=== PATIENT | male | born 1960 | race Caucasian/White ===

== ENCOUNTER 2020-11-02 21:47 | Emergency (ER) | payer MEDICARE ==
[~2020-11-02] VITALS: Ht 193 cm; Wt 115.2 kg
[~2020-11-02 21:47] MED LIST: ASPIR-LOW81 MG PO; ASPIRIN EC325 MG; ATENOLOL25 MG; BUDEPRION XL300 MG; BUPROPION XL450 MG PO; CARBIDOPA-LEVO1 EAC1 PO; COMPLETE M9 MG/15 ML; DOCUSATE SODIU100 MG; FEOSOL325 MG PO; FLEXERIL10 MG; GABAPENTIN800 MG PO; HYDROCODON-ACE1 EAC8 PO; HYDROMORPHONE HC2 MG; IBU600 MG PO; LANTUS100 UNITS/; LANTUS100 UNITS/ SUB-Q; MULTIVITAMINS1 EAC6 PO; OMEPRAZOLE20 M1; POLYETHYLENE2500 GM; ROPINIROLE HC0.25 MG; ROPINIROLE HCL2 MG PO; SENEXON8.6 MG; SYNTHROID25 MCG PO; TRAZODONE HCL100 MG; TRAZODONE HCL150 MG PO; TYLENOL325 MG; ULTRAM50 MG PO; VIAGRA100 MG PO; ZOCOR40 MG PO; ZOCOR80 MG; ZOLOFT100 MG; ZOLOFT100 MG PO
[2020-11-02] MEDS ORDERED: CYMBALTA20 MG PO (22:03)
== END 2020-11-03 01:38 | disposition home or self-care (01) ==
LOC: ED 21:47
DX: S63.502A Unspecified sprain of left wrist, initial encounter (principal); X58.XXXA Exposure to other specified factors, initial encounter; I10 Essential (primary) hypertension; E11.9 Type 2 diabetes mellitus without complications; Z87.891 Personal history of nicotine dependence; Z88.8 Allergy status to other drugs, medicaments and biological substances; Z91.012 Allergy to eggs; Z79.899 Other long term (current) drug therapy; Z79.82 Long term (current) use of aspirin; Z79.4 Long term (current) use of insulin
CPT/HCPCS: 73110; 73660; 99283-25

== ENCOUNTER 2021-03-15 15:44 | Emergency (ER) | payer MEDICARE ==
[~2021-03-15] VITALS: Ht 193 cm; Wt 115.2 kg
[~2021-03-15 15:44] MED LIST changes: +CYMBALTA20 MG PO
--- NOTE | 2021-03-16 18:53 | EKG ---
[facility] [address] [facility] [place], [place] [address] Signed Normal sinus rhythm Inferior infarct , age undetermined Abnormal ECG When compared with ECG of 23-JUN-2019 10:17, Inferior infarct is now present Confirmed by RENE PERALTA DO ([id number]) on 03/16/2021 6:53:33 PM Electronically Signed By: RENE PERALTA DO 03/16/211852 PATIENT NAME: BERMUDEZMARISABEL Electrocardiogram DATE OF : 60 PHYSICIAN: RENE PERALTA DO REPORT #: [id number] REPORT IS CONFIDENTIAL AND NOT TO BE RELEASED WITHOUT AUTHORIZATION
== END 2021-03-15 19:27 | disposition home or self-care (01) ==
LOC: ED 15:44
DX: U07.1 COVID-19 (principal); Z23 Encounter for immunization; I10 Essential (primary) hypertension; E11.9 Type 2 diabetes mellitus without complications; Z87.891 Personal history of nicotine dependence; Z88.8 Allergy status to other drugs, medicaments and biological substances; Z91.012 Allergy to eggs; Z79.899 Other long term (current) drug therapy; Z79.82 Long term (current) use of aspirin; Z79.891 Long term (current) use of opiate analgesic; Z79.4 Long term (current) use of insulin
CPT/HCPCS: 71045; 93005; 93010; 99284-25; C9803; M0243; Q0244; U0003

== ENCOUNTER 2021-12-06 05:50 | Day surgery (SDC) | payer OTHER ==
[~2021-12-06] VITALS: Ht 193 cm; Wt 110.9 kg
[~2021-12-06 05:50] MED LIST changes: +BELBUCA300 MCG; +OMEGA 3 1,0001 EACH PO
[2021-12-06] MEDS ORDERED: METFORMIN HCL1000 MG PO (06:31)
--- NOTE | 2021-12-06 06:38 | NUR ---
FELL LAST WEEK TRIPPED OVER RUG. BRUISING ON FOREARMS. STATES CANT FEEL FEET.
--- NOTE | 2021-12-06 07:43 | NUR ---
12/06/21 0743 Sara Cain 0709 PATIENT ARRIVES TO PACU UNRESPONSIVE TO VERBAL STIMULI. RESP EVEN AND UNLABORED, NC AT [address] IN PLACE.
--- NOTE | 2021-12-06 13:33 | OR ---
[facility] [address] [place], [place] [address] Signed DATE OF OPERATION: 12/06/2021 SURGEON: Beck Coburn MD PREOPERATIVE DIAGNOSES: 1. Screening. 2. Hemorrhoids. 3. Pruritus ani. 4. Diverticulosis. POSTOPERATIVE DIAGNOSES: 1. Minimal sigmoid diverticulosis. 2. Multiple small internal anal skin tags. PROCEDURE: Colonoscopy without biopsy. ESTIMATED BLOOD LOSS: None. INDICATIONS: Pedro is a 61-year-old gentleman, I have known for many years. He has been asked to see me for a followup colonoscopy. He underwent a negative colonoscopy in [address] Danilo Shaikh. He said he was awake throughout the test and it was quite miserable and painful. They explained to AJ he would need a monitored anesthesia care in the future. That is expected given his multiple disabilities along with his chronic pain and need for daily narcotics. He told me he had been raised in an orphanage in [place] and therefore has very little knowledge of his family. He cannot recall anyone with colon cancer or polyps. He talked about incision and drainage of a thrombosed hemorrhoid back in his 20s. He said he has cut back his eating. He has been losing weight. He also describes pruritus ani. I gave him brochures not only on colonoscopy, but also hemorrhoids and our handout on pruritus ani. We had gone over that together. He really needs to use a daily fiber product. We also recommended Balneol lotion to protect his perianal skin. In the office, his reminded me that I helped her with a colonoscopy in the recent past. They understand the nature of the test. There is risk including, but not limited to gas bloating, crampy abdominal pain, bleeding, perforation requiring surgery, and missed diagnosis. We also reviewed the written instructions for our bowel prep line by line. We asked him to do a double bowel prep. Even then he did not start going to the bathroom until around 11:30 at night. Today, he was mostly cleaned out except for some particulate liquid stool matter in the rectum and a little bit in his Electronically Signed By: BECK COBURN MD 12/06/21 1333 PATIENT NAME: PEDRO BERMUDEZ OPERATIVE REPORT DATE OF : 60 REPORT #: [id number] PHYSICIAN: BECK COBURN MD PCP: LUIS ARMANDO FONTANEZ REPORT IS CONFIDENTIAL AND NOT TO BE RELEASED WITHOUT AUTHORIZATION [facility] [address] [place] [id number] Signed left colon. Otherwise, he did well. He could have used a little more prep, however. In addition, we talked about the monitored anesthesia care. He did receive preoperative blood work and an EKG as well. He had expressed understanding and wished to proceed. PROCEDURE NOTE: I met with AJ and his once again this morning in our preop area. After this, he was taken into our endoscopy suite and placed in the left lateral decubitus position. He was given monitored anesthesia care with propofol per our nurse yarn rewinder. A digital rectal exam was performed and this was unremarkable. He has good sphincter tone. Not much in the way of any external hemorrhoids. He is very tall at 6 foot 4 inches and I simply could not reach his prostate gland. The adult colonoscope had been introduced and advanced under direct visualization of the camera without difficulty. Overall, his prep was good except for some liquid particulate stool matter in the left colon and rectum. Much of that was irrigated and suctioned out but not quite all of it. It was starting to . We could see the appendiceal orifice and the ileocecal valve. The scope was then slowly withdrawn. He does have some diverticula in the sigmoid colon. They were moderate in size, few in number, and scattered about. The rectum was unremarkable. Upon retroflexion of the scope, he does have several small internal anal skin tags and hemorrhoid columns. After this, the gas was suctioned out and the colonoscope removed. AJ tolerated the procedure quite well. RECOMMENDATIONS: AJ can follow up in 10 years for repeat screening colonoscopy. He will need to use at least a double bowel prep to help completely evacuate his colon. And as always, he will need monitored anesthesia care. Beck Coburn MD ALB/MODL /[id number] cc: AMY [place] MD [facility] in [place] Electronically Signed By: BECK COBURN MD 12/06/21 1333 PATIENT NAME: PEDRO BERMUDEZ OPERATIVE REPORT DATE OF : 60 REPORT #: [id number] PHYSICIAN: BECK COBURN MD PCP: LUIS ARMANDO FONTANEZ REPORT IS CONFIDENTIAL AND NOT TO BE RELEASED WITHOUT AUTHORIZATION [address] [place], [place] [address] Signed Copies: LUIS ARMANDO FONTANEZ ANDREW L MD ~ Electronically Signed By: BECK COBURN MD 12/06/21 1333 PATIENT NAME: AIDANPEDRO J OPERATIVE REPORT DATE OF : 60 REPORT #: [id number] PHYSICIAN: BECK COBURN MD PCP: LUIS ARMANDO FONTANEZ REPORT IS CONFIDENTIAL AND NOT TO BE RELEASED WITHOUT AUTHORIZATION
== END 2021-12-06 08:15 | disposition home or self-care (01) ==
LOC: OPS 05:50 → DS 05:50 → OPS 07:30
PROVIDERS: ATTEND Colon & Rectal Surgery
PROC: 0DJD8ZZ Inspection of Lower Intestinal Tract, Via Natural or Artificial Opening Endoscopic (ICD-10-PCS; principal; 2021-12-06 07:30)
DX: Z12.11 Encounter for screening for malignant neoplasm of colon (principal); K64.4 Residual hemorrhoidal skin tags; K57.30 Diverticulosis of large intestine without perforation or abscess without bleeding; I10 Essential (primary) hypertension; E78.5 Hyperlipidemia, unspecified; F43.10 Post-traumatic stress disorder, unspecified; E11.40 Type 2 diabetes mellitus with diabetic neuropathy, unspecified; K21.9 Gastro-esophageal reflux disease without esophagitis; G89.29 Other chronic pain; F11.10 Opioid abuse, uncomplicated; L29.0 Pruritus ani; E03.9 Hypothyroidism, unspecified; E66.9 Obesity, unspecified; G47.33 Obstructive sleep apnea (adult) (pediatric); Z79.84 Long term (current) use of oral hypoglycemic drugs; Z79.4 Long term (current) use of insulin; X58.XXXA Exposure to other specified factors, initial encounter; Z68.30 Body mass index [BMI] 30.0-30.9, adult
CPT/HCPCS: J0690; J2001; J2704; J7121

== ENCOUNTER 2024-09-08 16:16 | Emergency (ER) | payer OTHER ==
[~2024-09-08] VITALS: Ht 193 cm; Wt 117.0 kg
[~2024-09-08 16:16] MED LIST changes: +METFORMIN HCL1000 MG PO
--- OUTSIDE RECORDS SUMMARY | 2024-09-08 16:27 | XMS ---
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 EBernardo VISIT COUNT (12 MO.) 1 BRAYAN Perez TOTAL 1 NOTE: Visits indicate total known visits. ED/UCC VISIT TRACKING (12 MO.) 09/08/2024 16:17 BRAYAN Stephens OR TYPE: Emergency COMPLAINT: - DIZZY, SHAKEY INPATIENT VISIT TRACKING (12 MO.) No inpatient visits to display in this time frame [email or web address]
[2024-09-08] MEDS ORDERED: SEROQUEL50 MG PO (17:09)
[2024-09-08 17:10] LABS: BASOPHILS 0.9 % (0.2-1.2); EOSINOPHILS 1.9 % (0.8-7.0); HEMATOCRIT 45.3 % (40.1-51.0); HEMOGLOBIN 15.4 g/dL (13.7-17.5); LYMPHOCYTES 19.1 % (21.8-53.1); MCH 31.3 PG (25.7-32.2); MCV 92.1 fL (79.0-92.2); NEUTROPHILS 69.8 % (34.0-67.9); PLATELET COUNT 247 K/uL (163-337); RBC 4.92 M/uL (4.63-6.08)
[2024-09-08] MEDS ORDERED: LISINOPRIL10 MG PO (17:10)
[2024-09-08] MEDS ORDERED: MELOXICAM7.5 MG PO (17:10)
[2024-09-08] MEDS ORDERED: FLOMAX0.4 MG PO (17:11)
[2024-09-08] MEDS ORDERED: JARDIANCE10 MG PO (17:12)
[2024-09-08] MEDS ORDERED: CYMBALTA30 MG PO (17:13)
[2024-09-08] MEDS ORDERED: OMEPRAZOLE20 MG PO (17:14)
[2024-09-08] MEDS ORDERED: GABAPENTIN600 MG PO (17:15)
[2024-09-08] MEDS ORDERED: LEVOTHYROXINE50 MC1 PO (17:15)
[2024-09-08] MEDS ORDERED: ACTOS30 MG PO (17:16)
[2024-09-08] MEDS ORDERED: BELBUCA450 MCG ×2 (17:19)
[2024-09-08 17:27] LABS: ALBUMIN/GLOBULIN RATIO 1.03 (1.1-2.4); ALKALINE PHOSPHATASE 72 U/L (46-116); ALT (SGPT) 27 U/L (14-59); AST (SGOT) 20 U/L (15-37); BUN/CREATININE RATIO 23.57 (6.0-28.6); CALCIUM 9.3 mg/dL (8.5-10.1); CARBON DIOXIDE 25 mmol/L (21-32); CHLORIDE 98 mmol/L (98-107); CREATININE, SERUM 1.23 mg/dL (0.70-1.30); GLOMERULAR FILTRATION RATE,EST 66 mL/min (>60); MAGNESIUM 1.7 mg/dL (1.8-2.4); PROTEIN, TOTAL 7.9 g/dL (6.4-8.2); UREA NITROGEN 29 mg/dL (7-18)
[2024-09-08 18:34] LABS: BILIRUBIN, URINE POSITIVE (negative); BLOOD/HGB, URINE NEGATIVE (Negative); KETONE, URINE >=80 (Negative); LEUK ESTERASE, URINE NEGATIVE (negative); NITRITE, URINE NEGATIVE (negative); PH, URINE 5.5 (5-7)
[2024-09-08] MEDS ORDERED: LACTATED RINGER'S 1,000 ML IV ONE (20:00)
--- NOTE | 2024-09-08 21:43 | EKG ---
[facility] [address] [facility] [place] [address] Signed Sinus tachycardia Otherwise normal ECG When compared with ECG of 28-NOV-2021 09:32, No significant change was found Confirmed by Lupis Fernando MD () on 09/08/2024 9:42:53 PM Electronically Signed By: LUPIS FERNANDO MD 09/08/242142 PATIENT NAME: MARISABEL BERMUDEZ [place] Electrocardiogram DATE OF : 60 PHYSICIAN: LUPIS FERNANDO MD REPORT #: [id number] REPORT IS CONFIDENTIAL AND NOT TO BE RELEASED WITHOUT AUTHORIZATION
[2024-09-08 21:53] VITALS: BP 129/76
== END 2024-09-08 21:50 | disposition home or self-care (01) ==
LOC: ED 16:16
PROVIDERS: Emergency Medicine
DX: R42 Dizziness and giddiness (principal); I10 Essential (primary) hypertension; E11.9 Type 2 diabetes mellitus without complications; E03.9 Hypothyroidism, unspecified; Z87.891 Personal history of nicotine dependence; Z91.012 Allergy to eggs; Z88.8 Allergy status to other drugs, medicaments and biological substances; Z79.84 Long term (current) use of oral hypoglycemic drugs; Z79.899 Other long term (current) drug therapy; Z79.890 Hormone replacement therapy; Z79.4 Long term (current) use of insulin
CPT/HCPCS: 36415; 80053; 81003; 83735; 84484; 85025; 93005; 93010; 96360; 99284-25; J7121

== ENCOUNTER 2024-09-10 09:53 | Emergency (ER) | payer OTHER ==
[~2024-09-10] VITALS: Ht 193 cm; Wt 117.0 kg
[~2024-09-10 09:53] MED LIST changes: +ACTOS30 MG PO; +BELBUCA450 MCG; +CYMBALTA30 MG PO; +FLOMAX0.4 MG PO; +GABAPENTIN600 MG PO; +JARDIANCE10 MG PO; +LEVOTHYROXINE50 MC1 PO; +LISINOPRIL10 MG PO; +MELOXICAM7.5 MG PO; +OMEPRAZOLE20 MG PO; +SEROQUEL50 MG PO
--- OUTSIDE RECORDS SUMMARY | 2024-09-10 10:01 | XMS ---
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 Lam VISIT COUNT (12 MO.) 2 [facility] TOTAL 2 NOTE: Visits indicate total known visits. 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
[2024-09-10 10:46] LABS: BASOPHILS 1.9 % (0.2-1.2); EOSINOPHILS 3.3 % (0.8-7.0); HEMATOCRIT 43.9 % (40.1-51.0); HEMOGLOBIN 14.8 g/dL (13.7-17.5); LYMPHOCYTES 21.6 % (21.8-53.1); MCHC 33.7 g/dL (32.3-36.5); MCV 91.8 fL (79.0-92.2); MONOCYTES 10.5 % (5.3-12.2); NEUTROPHILS 62.5 % (34.0-67.9); PLATELET COUNT 238 K/uL (163-337); RBC 4.78 M/uL (4.63-6.08)
[2024-09-10 11:11] LABS: ALBUMIN 3.8 g/dL (3.4-5.0); ALCOHOL, MEDICAL <3 ng/dL (<3); ALKALINE PHOSPHATASE 65 U/L (46-116); ALT (SGPT) 25 U/L (14-59); AST (SGOT) 19 U/L (15-37); BILIRUBIN, TOTAL 0.8 mg/dL (0.2-1.0); BUN/CREATININE RATIO 21.21 (6.0-28.6); CALCIUM 8.9 mg/dL (8.5-10.1); CARBON DIOXIDE 27 mmol/L (21-32); CHLORIDE 100 mmol/L (98-107); CREATININE, SERUM 0.99 mg/dL (0.70-1.30); GLOMERULAR FILTRATION RATE,EST 85 mL/min (>60); PROTEIN, TOTAL 7.6 g/dL (6.4-8.2); TSH, 3RD GENERATION 4.224 uIU/mL (0.358-3.740); UREA NITROGEN 21 mg/dL (7-18)
[2024-09-10 11:13] LABS: INR 1.12 (0.80-1.30); PROTIME 13.9 Sec (11.2-14.2)
[2024-09-10 14:17] VITALS: BP 131/81
[2024-09-10 14:24] LABS: AMPHETAMINES, URINE NEGATIVE (NEGATIVE); BARBITURATES, URINE NEGATIVE (NEGATIVE); BENZODIAZEPINE, URINE NEGATIVE (NEGATIVE); BUPRENORPHINE, URINE POSITIVE (NEGATIVE); CANNABINOID, URINE POSITIVE (NEGATIVE); COCAINE, URINE NEGATIVE (NEGATIVE); ECSTASY, URINE POSITIVE (NEGATIVE); FENTANYL, URINE NEGATIVE (NEGATIVE); METHADONE, URINE NEGATIVE (NEGATIVE); OPIATES, URINE NEGATIVE (NEGATIVE); OXYCODONE, URINE NEGATIVE (NEGATIVE); PHENCYCLIDINE, URINE NEGATIVE (NEGATIVE)
--- NOTE | 2024-09-11 21:28 | EKG ---
[facility] [address] [facility] [place] [address] Signed Normal sinus rhythm Normal ECG When compared with ECG of 08-SEP-2024 16:55, No significant change was found Confirmed by Lupis Fernando MD () on 09/11/2024 9:28:30 PM Electronically Signed By: LUPIS FERNANDO MD 09/11/242127 PATIENT NAME: MARISABEL BERMUDEZ [place] Electrocardiogram DATE OF : 60 PHYSICIAN: LUPIS FERNANDO MD REPORT #: [id number] REPORT IS CONFIDENTIAL AND NOT TO BE RELEASED WITHOUT AUTHORIZATION
== END 2024-09-10 14:21 | disposition home or self-care (01) ==
LOC: ED 09:53
PROVIDERS: Emergency Medicine
DX: R42 Dizziness and giddiness (principal); R00.2 Palpitations; I10 Essential (primary) hypertension; E11.9 Type 2 diabetes mellitus without complications; Z87.891 Personal history of nicotine dependence; Z91.012 Allergy to eggs; Z88.8 Allergy status to other drugs, medicaments and biological substances; Z79.84 Long term (current) use of oral hypoglycemic drugs; Z79.899 Other long term (current) drug therapy; Z79.4 Long term (current) use of insulin
CPT/HCPCS: 36415; 71045; 71260; 80053; 80307; 83880; 84439; 84443; 85025; 85379; 85610; 93005; 93010; 99285-25; G0480; Q9967

== ENCOUNTER 2025-02-28 06:09 | Emergency (ER) | payer OTHER ==
[~2025-02-28] VITALS: Ht 193 cm; Wt 108.0 kg
--- OUTSIDE RECORDS SUMMARY | 2025-02-28 06:15 | XMS ---
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 EBernardo VISIT COUNT (12 MO.) 3 BRAYAN Perez TOTAL 3 NOTE: Visits indicate total known visits. 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 of oral hypoglycemic drugs - Other terminal superintendent (current) drug therapy - Palpitations - Personal history of nicotine dependence - Type 2 diabetes mellitus without complications 09/08/2024 16:17 BRAYAN Stephens OR TYPE: Emergency COMPLAINT: - DIZZY, SHAKEY DIAGNOSES: - Allergy status to other drugs, medicaments and biological substances - Allergy to eggs - Dizziness and giddiness - Essential (primary) hypertension - Hormone replacement therapy - Hypothyroidism, unspecified - detention (current) use of insulin - detention (current) use of oral hypoglycemic drugs - Other terminal superintendent (current) drug therapy - Personal history of nicotine dependence - Type 2 diabetes mellitus without complications INPATIENT VISIT TRACKING (12 MO.) No inpatient visits to display in this time frame [id number]
[2025-02-28] MEDS ORDERED: SODIUM CHLORIDE 0.9% 2,000 ML IV SCH (06:30)
[2025-02-28] MEDS ORDERED: HYDROmorphone HCL 1 MG/ML SYR IV PRN (06:30)
[2025-02-28 06:34] LABS: BASOPHILS 0.9 % (0.2-1.2); EOSINOPHILS 0.5 % (0.8-7.0); LYMPHOCYTES 13.5 % (21.8-53.1); MCH 30.3 PG (25.7-32.2); MCHC 33.8 g/dL (32.3-36.5); MCV 89.6 fL (79.0-92.2); MONOCYTES 8.5 % (5.3-12.2); NEUTROPHILS 76.5 % (34.0-67.9); RBC 5.21 M/uL (4.63-6.08)
[2025-02-28 06:58] LABS: ALT (SGPT) 26.0 U/L (14-59); AST (SGOT) 25.0 U/L (15-37); GLOMERULAR FILTRATION RATE,EST 92.0 mL/min (>60); PROTEIN, TOTAL 8.0 g/dL (6.4-8.2); UREA NITROGEN 28.0 mg/dL (7-18)
[2025-02-28] MEDS ORDERED: PROCHLORPERAZINE EDISYLATE 10 MG/2 ML VIAL IV ONE (08:45)
[2025-02-28 09:14] LABS: BLOOD/HGB, URINE NEGATIVE (Negative); KETONE, URINE >=80 (Negative); LEUK ESTERASE, URINE NEGATIVE (negative); NITRITE, URINE NEGATIVE (negative)
[2025-02-28] MEDS ORDERED: COMPAZINE25 MG PR (09:30)
[2025-02-28] MEDS ORDERED: ONDANSETRON ODT8 MG PO (09:30)
[2025-02-28 09:42] VITALS: BP 148/89
== END 2025-02-28 09:52 | disposition home or self-care (01) ==
LOC: ED 06:09
PROVIDERS: Emergency Medicine
DX: R10.31 Right lower quadrant pain (principal); R11.2 Nausea with vomiting, unspecified; I10 Essential (primary) hypertension; E11.9 Type 2 diabetes mellitus without complications; E03.9 Hypothyroidism, unspecified; Z79.4 Long term (current) use of insulin; Z79.84 Long term (current) use of oral hypoglycemic drugs; Z79.899 Other long term (current) drug therapy; Z91.0120 Allergy to eggs, unspecified; Z88.1 Allergy status to other antibiotic agents; Z87.891 Personal history of nicotine dependence
CPT/HCPCS: 36415; 74177; 80053; 81003; 82010; 82800; 83690; 85025; 96374; 96375; 96376; 99284-25; J0780; J1171; J2405; J7030; Q9967